=== PATIENT | male | born 1950 | race Caucasian/White ===

== ENCOUNTER 2016-11-10 08:17 | Day surgery (SDC) | payer OTHER ==
[~2016-11-10] VITALS: Ht 180.3 cm; Wt 77.1 kg
[~2016-11-10 08:17] MED LIST: ECO81 PO; FLO4 PO; FOL1 PO; NOR5 PO; ZOF4 PO; [UNRECOGNIZED DRUG - OTHER] PO
[2016-11-10 08:44] VITALS: BP 138/82
[2016-11-10 12:31] VITALS: BP 117/66
== END 2016-11-10 12:45 | disposition home or self-care (01) ==
LOC: GI 08:17 → OR 11:00 → GI 12:45
PROVIDERS: Internal Medicine Gastroenterology
PROC: 0DBN8ZX Excision of Sigmoid Colon, Via Natural or Artificial Opening Endoscopic, Diagnostic (ICD-10-PCS; 2016-11-10)
PROC: 0DBL8ZX Excision of Transverse Colon, Via Natural or Artificial Opening Endoscopic, Diagnostic (ICD-10-PCS; 2016-11-10)
PROC: 0DBF8ZX Excision of Right Large Intestine, Via Natural or Artificial Opening Endoscopic, Diagnostic (ICD-10-PCS; 2016-11-10)
PROC: 0DBH8ZX Excision of Cecum, Via Natural or Artificial Opening Endoscopic, Diagnostic (ICD-10-PCS; 2016-11-10)
PROC: 0DBL8ZZ Excision of Transverse Colon, Via Natural or Artificial Opening Endoscopic (ICD-10-PCS; 2016-11-10)
PROC: 0DBP8ZX Excision of Rectum, Via Natural or Artificial Opening Endoscopic, Diagnostic (ICD-10-PCS; principal; 2016-11-10 09:30)
PROC: 0DBG8ZX Excision of Left Large Intestine, Via Natural or Artificial Opening Endoscopic, Diagnostic (ICD-10-PCS; 2016-11-10 09:30)
DX: K83.0 Cholangitis (principal); Z86.010 Personal history of colon polyps
CPT/HCPCS: 45378; J1200; J1610; J2250; J2310; J3010; J3490

== ENCOUNTER 2016-11-11 11:03 | Emergency (ER) | payer OTHER ==
[~2016-11-11] VITALS: Ht 180.3 cm; Wt 77.1 kg
[2016-11-11 11:45] LABS: BASOPHIL % 0.7 % (0-2); PLATELET COUNT 218 x10^3mcL (130-400)
[2016-11-11 12:09] LABS: CALCIUM 8.9 mg/dL (8.5-10.1); CARBON DIOXIDE 29.1 mmol/L (21-32); CHLORIDE SERUM 103 mmol/L (98-107); CREATININE SERUM 0.9 mg/dL (0.7-1.3); GFR1 > 60 mL/min; GLUCOSE SERUM 91 mg/dL (74-106); POTASSIUM SERUM 4.1 mmol/L (3.5-5.1); SODIUM SERUM 138 mmol/L (136-145)
[2016-11-11 12:16] LABS: ALBUMIN 3.8 g/dL (3.4-5.0); ALKALINE PHOSPHATASE 259 U/L (46-116); ALT/SGPT 95 U/L (16-63); AST/SGOT 68 U/L (15-37); BILIRUBIN TOTAL 0.4 mg/dL (0.20-1.00); URIC ACID 4.7 mg/dL (3.5-7.2)
[2016-11-11 12:24] LABS: CHOLESTEROL 225 mg/dL (<200); HDL CHOLESTEROL 116 mg/dL (40-60)
[2016-11-11 13:17] VITALS: BP 109/68
== END 2016-11-11 13:17 | disposition home or self-care (01) ==
LOC: ED 11:03
PROVIDERS: Emergency Medicine
DX: S29.011A Strain of muscle and tendon of front wall of thorax, initial encounter (principal); F41.9 Anxiety disorder, unspecified; M25.512 Pain in left shoulder; M54.2 Cervicalgia; I10 Essential (primary) hypertension; N40.0 Benign prostatic hyperplasia without lower urinary tract symptoms; Z79.899 Other long term (current) drug therapy; Z98.890 Other specified postprocedural states; X58.XXXA Exposure to other specified factors, initial encounter; Y93.89 Activity, other specified; Y92.89 Other specified places as the place of occurrence of the external cause; Y99.8 Other external cause status
CPT/HCPCS: 36415; 83880; Q0092

== ENCOUNTER → 2017-05-25 | Outpatient (CLI) | payer OTHER ==
[2017-05-25 07:42] LABS: ALBUMIN 3.9 g/dL (3.4-5.0); BILIRUBIN DIRECT 0.16 mg/dL (0.0-0.2); BILIRUBIN TOTAL 0.4 mg/dL (0.20-1.00); TOTAL PROTEIN, SERUM 7.7 g/dL (6.4-8.2)
== END | disposition home or self-care (01) ==
LOC: LB 03:17
PROVIDERS: Internal Medicine
DX: K51.90 Ulcerative colitis, unspecified, without complications (principal)

== ENCOUNTER 2017-11-22 06:12 | Day surgery (SDC) | payer OTHER ==
[~2017-11-22] VITALS: Ht 180.3 cm; Wt 77.1 kg
[2017-11-22 06:32] VITALS: BP 143/84
[2017-11-22 10:23] VITALS: BP 115/75
== END 2017-11-22 10:10 | disposition home or self-care (01) ==
LOC: GI 06:12 → OR 07:30 → GI 07:30
PROVIDERS: Internal Medicine Gastroenterology
PROC: 0DBE8ZX Excision of Large Intestine, Via Natural or Artificial Opening Endoscopic, Diagnostic (ICD-10-PCS; principal; 2017-11-22 07:30)
DX: Z12.11 Encounter for screening for malignant neoplasm of colon (principal)
CPT/HCPCS: 45378; J1200; J1610; J2250; J2310; J3010; J3490

== ENCOUNTER 2019-01-10 07:35 | Day surgery (SDC) | payer OTHER ==
[~2019-01-10] VITALS: Ht 180.3 cm; Wt 79.8 kg
[2019-01-10 07:48] VITALS: BP 151/85
[2019-01-10 13:44] VITALS: BP 136/72
== END 2019-01-10 12:05 | disposition home or self-care (01) ==
LOC: GI 07:35
DX: K51.90 Ulcerative colitis, unspecified, without complications (principal); K63.89 Other specified diseases of intestine; M19.011 Primary osteoarthritis, right shoulder; C61 Malignant neoplasm of prostate; Z79.899 Other long term (current) drug therapy; Z88.8 Allergy status to other drugs, medicaments and biological substances; Z90.49 Acquired absence of other specified parts of digestive tract; Z98.890 Other specified postprocedural states; Z86.010 Personal history of colon polyps
CPT/HCPCS: 45378; J1200; J1610; J2250; J2310; J3010; J3490